=== PATIENT | female | born 1955 | race Caucasian/White ===

== ENCOUNTER → 2018-04-20 10:20 | Outpatient (CLI) | payer OTHER, SELFPAY | DX: Z23 Encounter for immunization (principal) | CPT/HCPCS: 90471; 90662 ==

== ENCOUNTER → 2018-09-29 14:44 | Outpatient (CLI) | payer OTHER, SELFPAY | PROVIDERS: Visit Provider Obstetrics & Gynecology | DX: M85.852 Other specified disorders of bone density and structure, left thigh (principal); Z78.0 Asymptomatic menopausal state | CPT/HCPCS: 77080 ==

== ENCOUNTER → 2018-10-13 11:09 | Outpatient (CLI) | payer OTHER, SELFPAY ==
--- NOTE | 2018-10-13 | DI.MG.S_ITS ---
BILATERAL DIGITAL SCREENING MAMMOGRAM 3D/2D WITH CAD: 10/13/2018 CLINICAL: Routine screening. Comparison is made to exams dated: 03/13/2017 mammogram, 04/13/2015 mammogram, 08/03/2013 mammogram, and 07/06/2013 mammogram - [facility]. The tissue of both breasts is heterogeneously dense. This may lower the sensitivity of mammography. Current study was also evaluated with a Computer Aided Detection (CAD) system. No significant masses, calcifications, or other findings are seen in either breast. There has been no significant interval change. IMPRESSION: NEGATIVE There is no mammographic evidence of malignancy. A 1 year screening mammogram is recommended. This exam was interpreted at Station ID: [id number]. NOTE: For mammograms, a report in lay terms will be sent to the patient. Approximately 15% of breast malignancies will not be visualized mammographically. In the management of a palpable breast mass, a negative mammogram must not discourage biopsy of a clinically suspicious lesion. Electronically Signed By: Radha leong/rosalie:10/13/2018 13:22:40 letter sent: Normal Exam ACR BI-RADS Category 1: Negative 3341F
== END ==
PROVIDERS: PCP Obstetrics & Gynecology; Visit Provider Obstetrics & Gynecology
DX: Z12.31 Encounter for screening mammogram for malignant neoplasm of breast (principal)
CPT/HCPCS: 77063; 77067

== ENCOUNTER → 2018-10-26 07:40 | Outpatient (CLI) | payer OTHER, SELFPAY ==
[2018-10-28 14:50] LABS: Fecal Immunochemical Test NOT DETECTED (NOT DETECTED)
== END ==
PROVIDERS: PCP Obstetrics & Gynecology; Visit Provider Obstetrics & Gynecology
DX: Z12.11 Encounter for screening for malignant neoplasm of colon (principal)
CPT/HCPCS: 82274

== ENCOUNTER → 2019-05-28 10:08 | Outpatient (CLI) | payer MEDICARE, OTHER, SELFPAY ==
[2019-05-28 11:10] LABS: Appearance Urine UA SL CLOUDY; Bilirubin Urine UA NEGATIVE (NEGATIVE); Color Urine UA YELLOW; Glucose Urine UA NEGATIVE (Negative); Ketones Urine UA NEGATIVE (NEGATIVE); Leukocyte Esterase Urine UA 1+ (NEGATIVE); Nitrite Urine UA NEGATIVE (Negative); Occult Blood Urine UA 2+ (Negative); Protein Urine UA NEGATIVE (Negative); Specific Gravity Urine UA <=1.005 (1.000-1.035); Urobilinogen Urine UA 0.2 E.U./dL (0.2); pH Urine UA 6.5 (4.5-8.0)
[2019-05-28 11:27] LABS: Amorphous Sediment Urine 1+; Bacteria Urine Few (2-10); Culture Indicated Urine Specimen Cultured; RBC Urine 0-1/HPF (0-5/HPF); Squamous Epithelial Cell Urine 1-5 /HPF (0-5/HPF); WBC Urine 5-10/HPF (0-5/HPF)
== END ==
PROVIDERS: PCP Obstetrics & Gynecology; Visit Provider Obstetrics & Gynecology
DX: R39.89 Other symptoms and signs involving the genitourinary system (principal)
CPT/HCPCS: 81001; 87086

== ENCOUNTER → 2020-01-10 10:34 | Outpatient (CLI) | payer MEDICARE, OTHER, SELFPAY ==
[2020-01-10 12:01] LABS: Add Manual Diff / Slide Review NO; Basophils Absolute Auto 0 /uL (0-100); Basophils Percent Auto 0.6 % (0-2); Eosinophils Absolute Auto 100 /uL (0-450); Hemoglobin 13.5 g/dL (12.0-16.0); Lymphocytes Absolute Auto 1100 /uL (1100-4500); Lymphocytes Percent Auto 24.2 % (25-40); Mean Corpuscular HGB Conc 33.7 % (30-36); Mean Corpuscular Hemoglobin 32.6 PG (26-34); Mean Corpuscular Volume 96.8 fL (80-100); Monocytes Absolute Auto 200 /uL (0-900); Monocytes Percent Auto 5.6 % (3-14); Neutrophils Absolute Auto 3000 /uL (1500-7000); Neutrophils Percent Auto 67.6 % (50-75); Platelet Count 152 X10^3/uL (150-400); Red Blood Cell Count 4.14 X10^6/uL (4.0-5.2); Red Cell Distribution Width 13.2 % (11.6-14.8); White Blood Cell Count 4.5 X10^3/uL (4.5-11.0)
[2020-01-10 12:19] LABS: Alanine Aminotransferase 19 IU/L (<35); Albumin 4.5 g/dL (3.5-5.0); Albumin Globulin Ratio 1.9 (1.0-2.8); Alkaline Phosphatase 49 U/L (38-126); Aspartate Aminotransferase 27 IU/L (14-36); BUN Creatinine Ratio 20.6 (6-22); Bilirubin Total 0.6 mg/dL (0.2-1.3); Blood Urea Nitrogen 13 mg/dL (7-17); Calcium 9.5 mg/dL (8.4-10.2); Carbon Dioxide 28 mmol/L (22-32); Chloride 103 mmol/L (98-107); Cholesterol 220 mg/dL (140-199); Estimated Glomerular Filt Rate > 60.0 mL/min (>60); Globulin 2.4 g/dL (1.7-4.1); Glucose 89 mg/dL (80-110); HDL Cholesterol 86 mg/dL (40-60); HEMOLYSIS < 15 (0-50); LDL Cholesterol Calculated 125 mg/dL (<100); Potassium 3.9 mmol/L (3.4-5.1); Sodium 138 mmol/L (137-145); Total Protein 6.9 g/dL (6.3-8.2); Triglycerides 44 mg/dL (35-150)
[2020-01-10 13:15] LABS: Thyroid Stimulating Hormone 1.05 uIU/mL (0.47-4.68)
== END ==
PROVIDERS: Referring Provider Obstetrics & Gynecology; Visit Provider Obstetrics & Gynecology
DX: Z13.228 Encounter for screening for other metabolic disorders (principal); Z13.29 Encounter for screening for other suspected endocrine disorder; Z87.39 Personal history of other diseases of the musculoskeletal system and connective tissue; Z13.220 Encounter for screening for lipoid disorders; R00.2 Palpitations; E78.5 Hyperlipidemia, unspecified
CPT/HCPCS: 36415; 80053; 80061; 84443; 85025

== ENCOUNTER → 2020-02-08 12:05 | Outpatient (CLI) | payer MEDICARE, OTHER, SELFPAY ==
--- NOTE | 2020-02-08 | DI.MG.S_ITS ---
BILATERAL DIGITAL SCREENING MAMMOGRAM 3D/2D WITH CAD: 02/08/2020 CLINICAL: Routine screening. Comparison is made to exams dated: 10/13/2018 mammogram, 03/13/2017 mammogram, and 04/13/2015 mammogram - [facility]. The tissue of both breasts is heterogeneously dense. This may lower the sensitivity of mammography. Current study was also evaluated with a Computer Aided Detection (CAD) system. No significant masses, calcifications, or other findings are seen in either breast. There has been no significant interval change. IMPRESSION: NEGATIVE There is no mammographic evidence of malignancy. A 1 year screening mammogram is recommended. This exam was interpreted at Station ID: [id number]. NOTE: For mammograms, a report in lay terms will be sent to the patient. Approximately 15% of breast malignancies will not be visualized mammographically. In the management of a palpable breast mass, a negative mammogram must not discourage biopsy of a clinically suspicious lesion. Electronically Signed By: Lester hollingsworth/rosalie:02/08/2020 16:36:23 letter sent: Normal Exam ACR BI-RADS Category 1: Negative 3341F
--- NOTE | 2020-02-08 12:08 | DI.US.S_ITS ---
PROCEDURE: US SOFT TISSUE HEAD AND NECK INDICATIONS: ENLARGED LYMPH NODE X 4 MONTHS- RT ANTERIOR NECK TECHNIQUE: Real-time scanning was performed of the neck region of interest, with image documentation. COMPARISON: None. FINDINGS: No sonographic abnormality identified in the region of clinically palpable abnormality. No enlarged lymph nodes identified. No soft tissue edema or abscess identified. IMPRESSION: No sonographic abnormality identified in region of clinically palpable abnormality. Dictated by: Cristy Calvert MD, PhD on 02/08/2020 at 16:00 Approved by: Cristy Calvert MD, PhD on 02/08/2020 at 16:00
--- NOTE | 2020-02-08 12:08 | DI.RAD.S_ITS ---
This blank DEXA report has been sent in error by the PACS system. The correct and complete report will be forthcoming in 1-2 days. Thank you for your patience and understanding. Dictated by: Cristy Calvert MD, PhD on 02/08/2020 at 13:45 Approved by: Cristy Calvert MD, PhD on 02/08/2020 at 13:46
== END ==
PROVIDERS: PCP Registered Nurse Diabetes Educator; Referring Provider Registered Nurse Diabetes Educator; Visit Provider Registered Nurse Diabetes Educator
DX: Z12.31 Encounter for screening mammogram for malignant neoplasm of breast (principal); R59.0 Localized enlarged lymph nodes; Z13.820 Encounter for screening for osteoporosis; M85.852 Other specified disorders of bone density and structure, left thigh; Z78.0 Asymptomatic menopausal state; Z82.62 Family history of osteoporosis; Z87.891 Personal history of nicotine dependence
CPT/HCPCS: 76536; 77063; 77067; 77080

== ENCOUNTER → 2020-10-06 12:25 | Outpatient (CLI) | payer MEDICARE, OTHER, SELFPAY ==
[2020-10-06] MEDS: COVID-19 VACC, Ad26(JANSSEN)/PF 0.5 ML IM (12:46)
== END ==
PROVIDERS: PCP Registered Nurse Diabetes Educator; Visit Provider Internal Medicine
DX: Z23 Encounter for immunization (principal)
CPT/HCPCS: 0031A; 91303

== ENCOUNTER 2021-01-17 11:23 | Emergency (ER) | payer MEDICARE, OTHER, SELFPAY ==
[2021-01-17 11:30] VITALS: BP 170/88; PULSE 80; RESP 18; TEMP 36; O2SAT 100; BMI 20.6
[2021-01-17] MEDS: TET,DIPH,PERTUSS(ACELL),VAC/PF 0.5 ML SYRINGE IM (11:52)
--- NOTE | 2021-01-17 12:11 | ED.FALL ---
HPI - Fall <MELISSA Mata - Last Filed: 01/17/21 14:37> General Chief Complaint: Fall Stated Complaint: fell while running right cheek/and right hand Time Seen by Provider: 01/17/21 12:11 Source: patient Mode of arrival: Ambulatory Limitations: no limitations History of Present Illness HPI Narrative: This is a 65-year-old female, former smoker, has no contributory medical history presents to ED with significant other with chief complain of injuries to bilateral hand, right-sided face, left knee from a fall while she was running on a road. Patient denies precedent symptoms such as chest pain, dyspnea, lightheadedness. Patient states she had lost balance and tripped and fell. Patient read back to home after the fall and cleaned her injury sites came into emergency room for an evaluation for duration on her face right-sided face whether this requires sutures. Patient reports mild tenderness around the right perioribtal region by deep palpation and right wrist/hand but denies increasing pain with movements with flexion and extension of right wrist and hand. Patient denies increasing discomfort with flexion or extension of left knee or palpation of patella region. Related Data Home Medications Medication Instructions Recorded Confirmed No Known Home Medications 01/17/21 01/17/21 Allergies Allergy/AdvReac Type Severity Reaction Status Date / Time No Known Drug Allergies Allergy Unknown Verified 01/12/20 15:03 [NO KNOWN DRUG ALLERGIES] Review of Systems <MELISSA Mata - Last Filed: 01/17/21 14:37> Review of Systems Narrative: General: Denies fever, chills, fatigue, malaise, sweats. HEENT: Denies sinus pain, ear pain, sore throat, difficulty swallowing, dizziness. Respiratory: Denies dyspnea, cough, wheezing, hemoptysis, sputum. Cardiovascular: Denies chest pain, palpitations, orthopnea, edema. Musculoskeletal: See HPI Skin: See HPI Neurologic: Denies weakness, headache, numbness, change in speech, confusion, seizures, incoordination. Patient History <MELISSA Mata - Last Filed: 01/17/21 14:37> Medical History Lymphadenopathy Pigmented nevus Surgical History Status post hysterectomy Family History Mother Age: 91 Congestive heart failure Atrial fibrillation, unspecified Social History Smoking Status: Former smoker Smoking Status: Former smoker alcohol intake frequency: 0-2 drinks per day Substance Use Type: does not use Exam <MELISSA Mata - Last Filed: 01/17/21 14:37> Narrative Exam Narrative: General appearance: well developed, well nourished, in no acute distress. Head: normocephalic, atraumatic, no scalp lesions, non-tender. ENT: Hearing grossly intact. Nose without bleeding, purulent discharge, septal hematoma or deviation. Facial sinuses nontender to palpate. Mucous membrane moist, no mucosal lesion. Throat without erythema, tonsillar hypertrophy or exudate. Uvula in midline, airway patent. EOMI bilaterally. Neck/Thyroid: neck supple, full range of motion, no visible masses or meningeal signs. No JVD, non-tender without lymphadenopathy. Skin: superficial abrasion on right ulna aspect in proximal Palm. Small abrasion on left ulna aspect of small palm. Left knee abrasion around patella. Right side face small superficial abrasion above eyebrow, superficial laceration on right cheek abrasion, superficial abrasion on right chin. Light ecchymosis right periorbital region. No significant swelling or tenderness with palpation. All these areas without active bleeding. Warm and dry and appropriate color for ethnicity. Heart: no clubbing, no cyanosis, no edema. Lungs: Breathing even and unlabored. No stridor. No accessory muscles used. Able to speak in full sentences. Chest: normal shape and expansion. Abdomen: non-obese, non-distended. Neurologic: alert and oriented. Cognitive exam, SITE LEASING AGENT and PNS grossly intact on informal exam. Psych: good eye contact, normal affect. Initial Vital Signs Initial Vital Signs: Vital Signs Temperature 96.8 F L 01/17/21 11:30 Pulse Rate 80 01/17/21 11:30 Respiratory Rate 18 01/17/21 11:30 Blood Pressure 170/88 H 01/17/21 11:30 Pulse Oximetry 100 01/17/21 11:30 Extrem Right upper extremity: full ROM, normal capillary refill, elbow/forearm Details: normal ROM; no tenderness and no swelling, wrist and hand Details: normal capillary refill, neurosensory exam normal, tendon exam normal, vascular exam, normal ROM of fingers, no swelling and abrasion; no tenderness Left upper extremity: full ROM, normal capillary refill and no joint enlargement Left lower extremity: full ROM, no joint enlargement and knee Details: normal ROM, knee ligament exam normal and abrasion; no edema <Stacia Ordonez DO - Last Filed: 01/17/21 18:50> Initial Vital Signs Initial Vital Signs: Vital Signs Temperature 96.8 F L 01/17/21 11:30 Pulse Rate 80 01/17/21 11:30 Respiratory Rate 18 01/17/21 11:30 Blood Pressure 170/88 H 01/17/21 11:30 Pulse Oximetry 100 01/17/21 11:30 Procedures <MELISSA Mata - Last Filed: 01/17/21 14:37> Laceration Repair Laceration 1: Site: face Side (If applicable): right Size (cm): 3 Description: linear Pre-repair: wound explored Skin layer closed with: steri-strips (3) Scores <MELISSA Mata - Last Filed: 01/17/21 14:37> GCS Tobin coma scale eye opening: Spontaneous [place] coma scale verbal response: Orientated Tobin coma scale motor response: Obey commands Tobin coma scale total score: 15 Course <MELISSA Mata - Last Filed: 01/17/21 14:37> Orders Ordered: Discontinued Medications Bacitracin (Bacitracin Oint 0.9 Gm Pckt) 2 applic TOP NOW ONE Stop: 01/17/21 12:29 Last Admin: 01/17/21 12:56 Dose: 2 applic Documented by: ERNESTINE Diphtheria/Tetanus/Acell Pertussis (Tet,Diph,Pertuss(Acell),Vac/Pf 0.5 Ml Syringe) 0.5 ml IM .ONCE ONE Stop: 01/17/21 11:44 Last Admin: 01/17/21 11:52 Dose: 0.5 ml Documented by: ERNESTINE Vital Signs Vital signs: Vital Signs - 8 hr 01/17/21 11:30 01/17/21 12:56 Temperature 96.8 F L Pulse Rate 80 70 Respiratory Rate 18 15 Blood Pressure 170/88 H 170/77 H Pulse Oximetry 100 <Stacia Ordonez DO - Last Filed: 01/17/21 18:50> Orders Ordered: Discontinued Medications Bacitracin (Bacitracin Oint 0.9 Gm Pckt) 2 applic TOP NOW ONE Stop: 01/17/21 12:29 Last Admin: 01/17/21 12:56 Dose: 2 applic Documented by: ERNESTINE Diphtheria/Tetanus/Acell Pertussis (Tet,Diph,Pertuss(Acell),Vac/Pf 0.5 Ml Syringe) 0.5 ml IM .ONCE ONE Stop: 01/17/21 11:44 Last Admin: 01/17/21 11:52 Dose: 0.5 ml Documented by: ERNESTINE Vital Signs Vital signs: Vital Signs - 8 hr 01/17/21 11:30 01/17/21 12:56 Temperature 96.8 F L Pulse Rate 80 70 Respiratory Rate 18 15 Blood Pressure 170/88 H 170/77 H Pulse Oximetry 100 MDM - Fall <MELISSA Mata - Last Filed: 01/17/21 14:37> Differential Diagnosis Differential diagnosis: Likely other (Laceration in right cheek, abrasion in multiple areas, contusions, periorbital fracture, wrist/hand fracture) Medical Records Attestation: I reviewed the patient's medical records. [facility] Narrative Medical decision making narrative: Tdap updated today. Abrasions treated with bacitracin and dressing. Considered periorbital fracture a fall but significant but no significant tenderness to palpate, no crepitus, step-off appreciated during exam. We discussed to follow up with primary care physician if persistent pain, unusual pain occurs for possible imaging test. Discussed signs and symptoms for infection to monitor and wound care with Steri-Strips at home discussed. Patient advised to use rest, cool packs, OTC Tylenol and or Motrin as needed for discomfort. Patient verbalized understanding in agreement with the treatment plan. Discharge Plan Departure Patient Disposition: Home Clinical Impression: Abrasion Fall Qualifiers: Encounter type: initial encounter Qualified Code(s): W19.XXXA - Unspecified fall, initial encounter Contusion Qualifiers: Encounter type: initial encounter Contusion area: head Contusion of head detail: periocular area Laterality: right Qualified Code(s): S00.11XA - Contusion of right eyelid and periocular area, initial encounter Activity Restrictions/Additional Instructions: You have been diagnosed with [multiple areas of contusions and abrasions from a fall. No bony tenderness or crepitus appreciated during exam.]. What to do: *Take your medications as directed. Please use [id number] antibiotic ointment after clean with soap and water. Facial superficial laceration was repaired with Steri-Strips. Please monitor for signs and symptoms for infection such as increasing redness, purulent discharge, hot to touch, worsening pain, or fever. Steri-Strips come off on its own in 5-10 days. You can reinforce Steri strips if prematurely comes off. You can use [id number] Tylenol and or Motrin as needed for discomfort. Use cool pack for 20-30 minutes at a time up to 4 to 5 times a day on affected site for discomfort. *Follow up with your primary care provider in 2-3 days, call for an appointment. Let them know you were seen in the ED and that we asked you to be seen in follow up. *Return to ED if you have any new, worsening, or concerning symptoms, such as [signs and symptoms for infection, worsening pain, chest pain, breathing difficulty, unable to tolerate fluids, or any acute concerns]. Prescriptions: No Action No Known Home Medications RF: 0 Referrals: Darius Randolph ARNP [Primary Care Provider] - <Stacia Ordonez DO - Last Filed: 01/17/21 18:50> Sign Out Provider Sign Out Attestation: I was immediately available in the department for consultation. Documentation has been reviewed. I agree with assessment and plan.
[2021-01-17 12:56] VITALS: BP 170/77; PULSE 70; RESP 15
[2021-01-17] MEDS: BACITRACIN OINT 0.9 GM PCKT 2 APPLIC TOP (12:56)
== END 2021-01-17 12:58 | disposition home or self-care (01) ==
PROVIDERS: Emergency Provider Nurse Practitioner Family; PCP Registered Nurse Diabetes Educator
DX: S00.11XA Contusion of right eyelid and periocular area, initial encounter (principal); S01.81XA Laceration without foreign body of other part of head, initial encounter; S60.512A Abrasion of left hand, initial encounter; S60.511A Abrasion of right hand, initial encounter; S80.212A Abrasion, left knee, initial encounter; W19.XXXA Unspecified fall, initial encounter; Z23 Encounter for immunization
CPT/HCPCS: 90471; 99283; 90715

== ENCOUNTER → 2021-03-22 14:39 | Outpatient (CLI) | payer MEDICARE, OTHER, SELFPAY ==
--- NOTE | 2021-03-22 | DI.MG.S_ITS ---
BILATERAL DIGITAL SCREENING MAMMOGRAM 3D/2D WITH CAD: 03/22/2021 CLINICAL: Routine screening. Comparison is made to exams dated: 02/08/2020 mammogram, 10/13/2018 mammogram, and 03/13/2017 mammogram - [facility]. The tissue of both breasts is heterogeneously dense. This may lower the sensitivity of mammography. Current study was also evaluated with a Computer Aided Detection (CAD) system. There is a possible new 0.6 cm irregular equal density asymmetry in the right breast posterior depth lateral region seen on the craniocaudal view only. No other significant masses, calcifications, or other findings are seen in either breast. IMPRESSION: INCOMPLETE: NEEDS ADDITIONAL IMAGING EVALUATION The possible new 0.6 cm irregular equal density asymmetry in the right breast is indeterminate. Additional views with possible ultrasound are recommended. This exam was interpreted at Station ID: [id number]. NOTE: For mammograms, a report in lay terms will be sent to the patient. Approximately 15% of breast malignancies will not be visualized mammographically. In the management of a palpable breast mass, a negative mammogram must not discourage biopsy of a clinically suspicious lesion. Electronically Signed By: Mateo antoine/rosalie:03/22/2021 16:00:11 letter sent: Additional Imaging Needed ACR BI-RADS Category 0: Incomplete 3340F
== END ==
PROVIDERS: PCP Registered Nurse Diabetes Educator; Referring Provider Registered Nurse Diabetes Educator; Visit Provider Registered Nurse Diabetes Educator
DX: Z12.31 Encounter for screening mammogram for malignant neoplasm of breast (principal)
CPT/HCPCS: 77063; 77067

== ENCOUNTER → 2021-03-23 14:13 | Outpatient (CLI) | payer MEDICARE, OTHER, SELFPAY ==
[2021-03-23 15:43] LABS: Add Manual Diff / Slide Review NO; Basophils Absolute Auto 0 /uL (0-100); Basophils Percent Auto 0.4 % (0-2); Eosinophils Absolute Auto 100 /uL (0-450); Eosinophils Percent Auto 1.2 % (2-4); Hematocrit 42.5 % (36-46); Lymphocytes Absolute Auto 1300 /uL (1100-4500); Lymphocytes Percent Auto 22.4 % (25-40); Mean Corpuscular Hemoglobin 32.2 PG (26-34); Mean Corpuscular Volume 97.5 fL (80-100); Monocytes Absolute Auto 400 /uL (0-900); Monocytes Percent Auto 7.2 % (3-14); Neutrophils Absolute Auto 4000 /uL (1500-7000); Neutrophils Percent Auto 68.8 % (50-75); Platelet Count 172 X10^3/uL (150-400); Red Blood Cell Count 4.36 X10^6/uL (4.0-5.2); Red Cell Distribution Width 12.4 % (11.6-14.8); White Blood Cell Count 5.8 X10^3/uL (4.5-11.0)
[2021-03-23 16:21] LABS: Alanine Aminotransferase 22 IU/L (<35); Albumin 4.8 g/dL (3.5-5.0); Albumin Globulin Ratio 1.8 (1.0-2.8); Alkaline Phosphatase 62 U/L (38-126); Aspartate Aminotransferase 30 IU/L (14-36); BUN Creatinine Ratio 20.9 (6-22); Bilirubin Total 0.8 mg/dL (0.2-1.3); Blood Urea Nitrogen 14 mg/dL (7-17); Carbon Dioxide 26 mmol/L (22-32); Chloride 101 mmol/L (98-107); Cholesterol 230 mg/dL (140-199); Estimated Glomerular Filt Rate > 60.0 mL/min (>60); Globulin 2.6 g/dL (1.7-4.1); Glucose 85 mg/dL (80-110); HDL Cholesterol 97 mg/dL (40-60); HEMOLYSIS < 15 (0-50); LDL Cholesterol Calculated 120 mg/dL (<100); Potassium 3.7 mmol/L (3.4-5.1); Sodium 136 mmol/L (137-145); Total Protein 7.4 g/dL (6.3-8.2); Triglycerides 63 mg/dL (35-150)
[2021-03-23 16:51] LABS: TSH w/ Reflex to FT4 1.71 uIU/mL (0.47-4.68)
[2021-03-23 17:09] LABS: Vitamin B12 Reflex MMA if <400 880 pg/mL (239-931)
== END ==
PROVIDERS: PCP Registered Nurse Diabetes Educator; Referring Provider Nurse Practitioner Family; Visit Provider Nurse Practitioner Family
DX: Z00.00 Encounter for general adult medical examination without abnormal findings (principal); R00.2 Palpitations; Z13.6 Encounter for screening for cardiovascular disorders
CPT/HCPCS: 36415; 80053; 80061; 82607; 84443; 85025

== ENCOUNTER → 2021-04-04 11:47 | Outpatient (CLI) | payer MEDICARE, OTHER, SELFPAY ==
[2021-04-04 13:28] LABS: COVID19 -Nasal RAPID Negative (Negative)
== END ==
PROVIDERS: PCP Registered Nurse Diabetes Educator; Visit Provider Physician Assistant
DX: Z20.822 Contact with and (suspected) exposure to COVID-19 (principal)
CPT/HCPCS: 87635; C9803

== ENCOUNTER → 2021-04-04 16:05 | Outpatient (CLI) | payer MEDICARE, OTHER, SELFPAY ==
--- NOTE | 2021-04-04 16:07 | DI.ECHO.S_ITS ---
[facility] +---------+ : : [address] [address] : : : : [id number] : : : : Phone: [phone]+ Echocardiogram Report + + :Name: HORACE STOREY Study Date: 04/04/2021 Height: 66 in : :[facility] ReadingLocation: Weight: 130 lb : : Gender: Female BSA: 1.7 m2 : :: 1955 Age: 66 yrs BP: 158/101 mmHg: :Reason For Study: PALPITATIONS WITH EXERTION : :Ordering Physician: CONSTANTINE, : :BRIGID Performed By: Ramila Fischer : :Referring: BRIGID FITCH : + + Interpretation Summary 1) Normal left ventricular thickness, size, wall motion, and systolic function (EF 60-65%). 2) Normal right ventricular size and function. 3) Moderate biatrial enlargement present. 4) No significant valvular abnormalities. 5) A patent foramen ovale is present. 6) Hypertension is present during the study (BP 158/101mmHg). 7) No prior Echo available for comparison. Procedure: A two-dimensional transthoracic echocardiogram with color flow and Doppler was performed. The study quality was technically adequate. There is no prior echocardiogram noted for this patient. The patient was in sinus rhythm with heart rates between 63-74 bpm during the exam. Left Ventricle: The left ventricle is normal in size and wall thickness. The ejection fraction is estimated to be 60-65%. Left ventricular systolic function appears normal without focal wall motion abnormalities. Right Ventricle: The right ventricle is normal in size and function. Atria: The left atrium is moderately dilated. The right atrium is moderately dilated. A patent foramen ovale is present. Doppler evidence suggests a left to right interatrial shunt. Mitral Valve: The mitral valve is normal in structure and function. There is trace mitral regurgitation. Aortic Valve: The aortic valve is trileaflet. The aortic valve opens well. There is no aortic valve stenosis. No aortic regurgitation is present. Tricuspid Valve: The tricuspid valve is normal in structure and function. There is trace tricuspid regurgitation. Pulmonary artery pressures cannot be estimated because of the lack of a measurable TR jet velocity but the IVC suggests a CVP of around 36 mmHg. Pulmonic Valve: The pulmonic valve leaflets are thin and pliable; valve motion is normal. There is mild pulmonic regurgitation. Great Vessels: The aortic root is normal size. The dimensions of the ascending aorta are normal. The IVC is of normal diameter and collapses greater than 50% with a sniff. This suggests a low right atrial pressure of 3 mm Hg. Pericardium/ Pleura There is no pericardial effusion. There is no pleural effusion. MMode/2D Measurements & Calculations LVIDd: 4.1 cm LVOT diam: 2.0 cm LVIDs: 2.4 cm Ao root diam: 2.8 cm FS: 40.7 % asc Aorta Diam: 2.5 cm IVSd: 0.68 cm Ao Arch Diam (Prox Trans): 2.5 cm LVPWd: 0.81 cm LV gomez. diameter/BSA (cm/m^2): 2.5 LV sys. diameter/BSA (cm/m^2): 1.5 LA A2 area: 22.0 cm2 RA long axis: 5.9 cm LA A4 area: 25.1 cm2 RA area: 21.3 cm2 LA length (vol): 6.1 cm RA vol: 65.0 ml LA vol: 77.5 ml RA : 39.1 ml/m2 LA vol index: 46.6 ml/m2 IVC diam: 1.7 cm RVD1 (basal): 3.3 cm TAPSE: 2.4 cm Doppler Measurements & Calculations Ao V2 max: 130.3 cm/sec LVOT Max Nawaf: 96.1 cm/sec Ao V2 mean: 86.4 cm/sec LV V1 max P.7 mmHg Ao max P.8 mmHg LV V1 VTI: 21.1 cm Ao mean P.4 mmHg MARGY(I,D): 2.1 cm2 Ao V2 VTI: 29.9 cm MARGY(V,D): 2.2 cm2 sev ratio: 0.71 MARGY indexed to BSA (cm^2/m^2): 1.3 MV E max nawaf: 94.3 cm/sec TR max nawaf: 284.9 cm/sec MV A max nawaf: 88.4 cm/sec TR max P.5 mmHg MV E/A: 1.1 PA V2 max: 133.1 cm/sec Med Peak E' Nawaf: 10.5 cm/sec PA V2 mean: 88.7 cm/sec E/E' med: 9.0 PA mean P.7 mmHg Lat Peak E' Nawaf: 10.9 cm/sec PA pr(Accel): 17.3 mmHg E/E' lat: 8.7 E/e' average: 8.8 MV dec time: 0.21 sec SV(LVOT): 63.1 ml Reading Physician:05:37 PM
== END ==
PROVIDERS: PCP Registered Nurse Diabetes Educator; Referring Provider Nurse Practitioner Family; Visit Provider Nurse Practitioner Family
DX: Q21.1 Atrial septal defect (principal); I37.1 Nonrheumatic pulmonary valve insufficiency; R00.2 Palpitations; Z20.822 Contact with and (suspected) exposure to COVID-19
CPT/HCPCS: 87635; 93242; 93306; C9803

== ENCOUNTER → 2021-04-04 | Outpatient (CLI) | payer MEDICARE, OTHER, SELFPAY ==
--- NOTE | 2021-04-20 08:20 | P.HOLT.S_ITS ---
Automotive Professional Report Referral & Results Date Patient Seen: 04/04/21 Requesting provider: James Rodriguez Indication: Palpitations Duration of monitoring (days): 5 Diary information: There were 8 patient triggered events and 3 patient diary entries All of these patient events were associated variably with (within 45 seconds) sinus rhythm, PACs, and PVCs Data: Minimum heart rate identified was 52 beats per minute at 09:52 on 04/07/2021 Maximum heart rate was 160 beats per minute at 10:28 on 04/05/2021 Maximum overall heart rate was 187 beats per minute at 13:01 on 04/05/2021 during a 6 beat run of SVT Approximately 1.5% of identified beats were supraventricular ectopic in origin which would classify them as occasional Less than 1% of identified beats were ventricular ectopic in origin which would classify them as rare There were 151 runs of SVT/atrial tachycardia the fastest being the 6 beat run above and the longest lasting 12 beats at a rate of 131 beats per minute Impression: 5 day monitoring coordinator demonstrating occasional PACs, rare PVCs, and very rare very brief runs of SVT/atrial tachycardia. No clear correlation between reported symptom of palpitations and patient events with any one dysrhythmia could be identified although PACs as above were more frequent than PVCs overall. Clinical correlation suggested
== END ==
PROVIDERS: PCP Registered Nurse Diabetes Educator; Referring Provider Nurse Practitioner Family; Visit Provider Nurse Practitioner Family
DX: R00.2 Palpitations (principal)
CPT/HCPCS: 93242; 93244

== ENCOUNTER → 2021-04-06 13:11 | Outpatient (CLI) | payer MEDICARE, OTHER, SELFPAY ==
--- NOTE | 2021-04-06 14:30 | P.PCN_ITS ---
Cardiac Stress Test Report Referral & Results Date Patient Seen: 04/06/21 Requesting provider: James Rodriguez Indication: Palpitations with activity exercise, patient wearing a Zio monitor and had an echo done that showed only a PFO (by her report) Rest ECG: Unremarkable, occasional PAC Procedure Note: Today following both written and verbal informed consent, the patient was exercised according to a standard Johnny protocol. The patient exercised for a total of 10 minutes achieving a maximum heart rate of 189. Patient's maximum systolic blood pressure was 200. This was an estimated 12.8 MET's. There are no ST-T segment changes Function aerobic impairment rates about-50% on the active scale or exercise capacity equal to an active 30-year-old woman She did have rare PVCs including couplets in early exercise. There were symptomatic. These did not recur as heart rate increased With increased heart rate she had brief bursts of what appeared to be pretty classic SVT. None were sustained. Longest run was probably less than 10 beats Impression: No evidence of ischemia with amazing exercise capacity Based on above findings I would be very suspicious that more likely than not SVT as a source of patient's symptoms that occur with exercise. The Zio informational be useful to rule out any more serious ventricular dysrhythmia and perhaps to help confirm the diagnosis of an SVT Patient is about to take a trip to [facility] [place] the [place]. She is concerned about developing this at that altitude. She asked about options and I would suggest maybe metoprolol tartrate 25 mg to be taken either as needed for symptomatic dysrhythmia or perhaps a succinate version to be taken daily to help with blood pressure control as well should that be persistently high Cardiology also uses flecainide for this purpose which is affective sometimes. I would also recommend referral to an crop specialist for strong consideration of ablation which is usually very successful again assuming this is a classic SVT causing her symptoms. 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 Please note: Actual ECG tracings can be found in the PACS system.
== END ==
PROVIDERS: PCP Registered Nurse Diabetes Educator; Referring Provider Registered Nurse Diabetes Educator; Visit Provider Nurse Practitioner Family
DX: R00.2 Palpitations (principal)
CPT/HCPCS: 93016; 93017; 93018

== ENCOUNTER → 2021-05-15 12:52 | Outpatient (CLI) | payer MEDICARE, OTHER, SELFPAY ==
--- NOTE | 2021-05-15 | DI.MG.S_ITS ---
UNILATERAL RIGHT DIGITAL DIAGNOSTIC MAMMOGRAM 3D/2D WITH ADDITIONAL VIEWS: 05/15/2021 CLINICAL: Additional evaluation requested from prior study. Comparison is made to exams dated: 03/22/2021 mammogram, 02/08/2020 mammogram, and 10/13/2018 mammogram - [facility]. The tissue of right breast is heterogeneously dense. This may lower the sensitivity of mammography. Previously questioned 0.6 cm asymmetry in the right breast posterior depth lateral region seen on prior craniocaudal view only is no longer demonstrated, dissipating with spot compression and not confirmed on additional views. No other significant masses or calcifications are seen in the breast. IMPRESSION: BENIGN Previoulsy questioned asymmetry no longer demonstrated. There is no mammographic evidence of malignancy. A 1 year screening mammogram is recommended. This exam was interpreted at Station ID: [id number]. NOTE: For mammograms, a report in lay terms will be sent to the patient. Approximately 15% of breast malignancies will not be visualized mammographically. In the management of a palpable breast mass, a negative mammogram must not discourage biopsy of a clinically suspicious lesion. Electronically Signed By: Jad Alejandra M.D. jr/:05/15/2021 13:18:43 letter sent: Normal Exam ACR BI-RADS Category 2: Benign Finding(s) 3342F
== END ==
PROVIDERS: PCP Registered Nurse Diabetes Educator; Referring Provider Registered Nurse Diabetes Educator; Visit Provider Registered Nurse Diabetes Educator
DX: R92.8 Other abnormal and inconclusive findings on diagnostic imaging of breast (principal)
CPT/HCPCS: 77065; G0279

== ENCOUNTER → 2022-06-05 11:55 | Outpatient (CLI) | payer MEDICARE, OTHER, SELFPAY ==
[2022-06-05 14:34] LABS: BUN Creatinine Ratio 26.5 (6-22); Blood Urea Nitrogen 18 mg/dL (7-17); Calcium 8.9 mg/dL (8.4-10.2); Carbon Dioxide 27 mmol/L (22-32); Chloride 103 mmol/L (98-107); Estimated Glomerular Filt Rate > 60 mL/min (>60); Glucose 85 mg/dL (80-110); HEMOLYSIS < 15 (0-50); Magnesium 1.9 mg/dL (1.6-2.3); Potassium 4.1 mmol/L (3.4-5.1); Sodium 140 mmol/L (137-145)
== END ==
PROVIDERS: PCP Registered Nurse Diabetes Educator; Referring Provider Nurse Practitioner Family; Visit Provider Nurse Practitioner Family
DX: Z51.81 Encounter for therapeutic drug level monitoring (principal); Z79.899 Other long term (current) drug therapy
CPT/HCPCS: 36415; 80048; 83735

== ENCOUNTER → 2022-06-13 12:17 | Outpatient (CLI) | payer MEDICARE, OTHER, SELFPAY ==
--- NOTE | 2022-06-13 12:18 | DI.MG.S_ITS ---
BILATERAL DIGITAL SCREENING MAMMOGRAM 3D/2D WITH CAD: 06/13/2022 CLINICAL: Routine screening. Comparison is made to exams dated: 03/22/2021 mammogram, 02/08/2020 mammogram, and 10/13/2018 mammogram - [facility]. Both breasts are heterogeneously dense, which may obscure small masses (category c / 51-75% glandular tissue). Current study was also evaluated with a Computer Aided Detection (CAD) system. No significant masses, calcifications, or other findings are seen in either breast. There has been no significant interval change. IMPRESSION: NEGATIVE There is no mammographic evidence of malignancy. A 1 year screening mammogram is recommended. Based on the Tyrer Cuzick model (a risk assessment model) the patient's lifetime risk is 6.4% and her 10 year risk is 3.8%. According to the ACR, ACS, and NCCN guidelines, an annual breast MRI exam along with mammogram is recommended if the patient's lifetime risk is 20% or greater. This exam was interpreted at Station ID: [id number]. NOTE: For mammograms, a report in lay terms will be sent to the patient. Approximately 15% of breast malignancies will not be visualized mammographically. In the management of a palpable breast mass, a negative mammogram must not discourage biopsy of a clinically suspicious lesion. Electronically Signed By: Mateo antoine/rosalie:06/13/2022 14:52:33 letter sent: Normal Exam ACR BI-RADS Category 1: Negative 3341F
== END ==
PROVIDERS: PCP Registered Nurse Diabetes Educator; Referring Provider Registered Nurse Diabetes Educator; Visit Provider Registered Nurse Diabetes Educator
DX: Z12.31 Encounter for screening mammogram for malignant neoplasm of breast (principal); Z78.0 Asymptomatic menopausal state; M85.852 Other specified disorders of bone density and structure, left thigh
CPT/HCPCS: 77063; 77067; 77080

== ENCOUNTER → 2023-08-15 16:07 | Outpatient (CLI) | payer MEDICARE, OTHER, SELFPAY ==
--- NOTE | 2023-08-15 16:08 | DI.MG.S_ITS ---
BILATERAL DIGITAL SCREENING MAMMOGRAM 3D/2D WITH CAD: 08/15/2023 CLINICAL: Routine screening. Comparison is made to exams dated: 06/13/2022 mammogram, 03/22/2021 mammogram, and 02/08/2020 mammogram - [facility]. Both breasts are heterogeneously dense, which may obscure small masses (category c / 51-75% glandular tissue). Current study was also evaluated with a Computer Aided Detection (CAD) system. No significant masses, calcifications, or other findings are seen in either breast. There has been no significant interval change. IMPRESSION: NEGATIVE There is no mammographic evidence of malignancy. A 1 year screening mammogram is recommended. Based on the Tyrer Cuzick model (a risk assessment model) the patient's lifetime risk is 6.1% and her 10 year risk is 3.8%. According to the ACR, ACS, and NCCN guidelines, an annual breast MRI exam along with mammogram is recommended if the patient's lifetime risk is 20% or greater. This exam was interpreted at Station ID: [id number]. NOTE: For mammograms, a report in lay terms will be sent to the patient. Approximately 15% of breast malignancies will not be visualized mammographically. In the management of a palpable breast mass, a negative mammogram must not discourage biopsy of a clinically suspicious lesion. Electronically Signed By: Mateo antoine/rosalie:08/15/2023 18:22:26 letter sent: Normal Exam ACR BI-RADS Category 1: Negative 3341F
== END ==
LOC: MAMMO 16:07
PROVIDERS: PCP Registered Nurse Diabetes Educator; Referring Provider Registered Nurse Diabetes Educator; Visit Provider Registered Nurse Diabetes Educator
DX: Z12.31 Encounter for screening mammogram for malignant neoplasm of breast (principal); R92.333 Mammographic heterogeneous density, bilateral breasts
CPT/HCPCS: 77063; 77067

== ENCOUNTER → 2024-09-02 12:28 | Outpatient (CLI) | payer MEDICARE, OTHER, SELFPAY ==
--- NOTE | 2024-09-02 12:31 | DI.RAD.S_ITS ---
PROCEDURE: XR DEXA AXIAL SKELETON INDICATIONS: ASYMPTOMATIC MENOPAUSAL STATE COMPARISON: [facility], , XR DEXA AXIAL SKELETON, 06/13/2022, 13:36. FINDINGS: Lumbar Spine: Bone mineral density 0.877 g/cm2, T score -1.5, compared to -1.3. Left Femoral Neck: Bone mineral density 0.638 g/cm2, T score -1.9, unchanged. Left Hip: Bone mineral density 0.763 g/cm2, T score -1.5, compared to -1.1. Fracture Risk Calculation (when applicable): 10-year fracture risk of a major osteoporotic fracture 10 percent and of a hip fracture 2 percent. (T score greater or equal to -1.0 to: NORMAL) (T score from -1.1 to -2.4: OSTEOPENIA) (T score less than or equal to -2.5: OSTEOPOROSIS) IMPRESSION: Osteopenia progressive in the spine and left hip. Follow-up guidelines as follows: Osteoporosis: Consider a repeat DEXA and Vertebral Fracture Assessment (VFA) exam in 2 years or sooner if medically necessary, to reassess this patient's status. Osteopenia: Consider a repeat DEXA in 2-3 years to reassess this patient's status, or if there is a new clinical indication. Normal: Consider a repeat DEXA in 5 years or sooner, or if there is a new clinical indication. All treatment decisions require clinical judgment and consideration of individual patient factors, including patient preferences, comorbidities, previous drug use, risk factors not captured in the FRAX model (e.g., frailty, falls, vitamin D deficiency, increased bone turnover, interval significant decline in bone density ) and possible under- or over-estimation of fracture risk by FRAX. In addition, the NOF Guide recommends that FDA-approved medical therapies be considered in postmenopausal women and men age >= 50 years with a: * Hip or vertebral (clinical or morphometric) fracture * T-score of <=-2.5 at the spine or hip * Ten-year fracture probability by FRAX of >= 3% for hip fracture or >=20% for major osteoporotic fracture. Dictated by: Manuela Bains M.D. on 09/02/2024 at 15:24 Approved by: Manuela Bains M.D. on 09/02/2024 at 15:27
[2024-09-02 13:34] LABS: Add Manual Diff / Slide Review NO; Basophils Absolute Auto 0 /uL (0-100); Basophils Percent Auto 0.6 % (0-2); Eosinophils Absolute Auto 100 /uL (0-450); Eosinophils Percent Auto 1.6 % (2-4); Hematocrit 38.8 % (36-46); Hemoglobin 13.1 g/dL (12.0-16.0); Lymphocytes Absolute Auto 1200 /uL (1100-4500); Lymphocytes Percent Auto 21.1 % (25-40); Mean Corpuscular HGB Conc 33.9 % (30-36); Mean Corpuscular Volume 97.3 fL (80-100); Monocytes Absolute Auto 400 /uL (0-900); Monocytes Percent Auto 7.1 % (3-14); Neutrophils Absolute Auto 3900 /uL (1500-7000); Neutrophils Percent Auto 69.6 % (50-75); Platelet Count 200 X10^3/uL (150-400); Red Blood Cell Count 3.99 X10^6/uL (4.0-5.2); Red Cell Distribution Width 13.4 % (11.6-14.8); White Blood Cell Count 5.6 X10^3/uL (4.5-11.0)
[2024-09-02 14:12] LABS: Alanine Aminotransferase 35 IU/L (<35); Albumin 4.6 g/dL (3.5-5.0); Albumin Globulin Ratio 2.2 (1.0-2.8); Alkaline Phosphatase 78 U/L (38-126); Aspartate Aminotransferase 31 IU/L (14-36); BUN Creatinine Ratio 20.8 (6-22); Bilirubin Total 0.6 mg/dL (0.2-1.3); Blood Urea Nitrogen 15 mg/dL (7-17); Calcium 9.4 mg/dL (8.4-10.2); Carbon Dioxide 28 mmol/L (22-32); Chloride 102 mmol/L (98-107); Cholesterol 222 mg/dL (140-199); Estimated Glomerular Filt Rate > 60 mL/min (>60); Globulin 2.1 g/dL (1.7-4.1); Glucose 89 mg/dL (80-110); HDL Cholesterol 82 mg/dL (40-60); HEMOLYSIS < 15 (0-50); LDL Cholesterol Calculated 129 mg/dL (<100); Potassium 4.8 mmol/L (3.4-5.1); Sodium 137 mmol/L (137-145); Total Protein 6.7 g/dL (6.3-8.2); Triglycerides 57 mg/dL (35-150)
[2024-09-02 14:24] LABS: Free T4, Direct Thyroxine 0.93 ng/dL (0.78-2.19)
[2024-09-02 14:37] LABS: Thyroid Stimulating Hormone 1.04 uIU/mL (0.47-4.68)
[2024-09-02 16:12] LABS: Estradiol, Total 58.6 pg/mL
[2024-09-03 03:39] LABS: Apolipoprotein B 98 mg/dL (<90)
== END ==
PROVIDERS: PCP Registered Nurse Diabetes Educator; Referring Provider Obstetrics & Gynecology; Visit Provider Obstetrics & Gynecology
DX: Z78.0 Asymptomatic menopausal state (principal); Z13.820 Encounter for screening for osteoporosis; M85.89 Other specified disorders of bone density and structure, multiple sites
CPT/HCPCS: 36415; 77080; 80053; 80061; 82172; 82670; 84439; 84443; 85025

== ENCOUNTER → 2024-10-06 11:37 | Outpatient (CLI) | payer MEDICARE, OTHER, SELFPAY ==
--- NOTE | 2024-10-06 11:38 | DI.MG.S_ITS ---
MM screening mammo BI: 10/06/2024. BI-RADS: 1 CLINICAL: 69-year old female for bilateral screening mammogram. Tyrer-Cuzick lifetime risk of 3.1%. No personal or first-degree family history of breast cancer. PRIOR EXAMS 08/15/2023, 06/13/2022, 05/15/2021, 03/22/2021, 02/08/2020, 10/13/2018, 03/13/2017, 04/13/2015. MAMMOGRAPHY TECHNIQUE: 2D and 3D (tomosynthesis) digital mammographic views obtained, with additional images as needed for full coverage. Current study was also evaluated with a Computer Aided Detection (CAD) system. DENSITY C. The breasts are heterogeneously dense, which may obscure small masses. MAMMOGRAPHY FINDINGS Bilateral: No suspicious mass, asymmetry, microcalcification, or other abnormality seen. No significant change from comparison. IMPRESSION: * No evidence of malignancy. RECOMMENDATIONS Bilateral * Annual screening mammography. OVERALL ASSESSMENT CATEGORY BI-RADS-1: Negative. The [employer] recommends annual screening mammography beginning at age 40 for women with average risk of breast cancer. ELECTRONICALLY SIGNED: Nury Braswell M.D. on 10/06/2024 at 02:51:46 PM PT Interpreting Station ID: [id number]
== END ==
LOC: MAMMO 11:38
PROVIDERS: PCP Registered Nurse Diabetes Educator; Referring Provider Registered Nurse Diabetes Educator; Visit Provider Registered Nurse Diabetes Educator
DX: Z12.31 Encounter for screening mammogram for malignant neoplasm of breast (principal); R92.333 Mammographic heterogeneous density, bilateral breasts
CPT/HCPCS: 77063; 77067